=== PATIENT | female | born 1960 | race Caucasian/White ===

== ENCOUNTER 2017-04-03 13:07 | Emergency (ER) | payer OTHER ==
[2017-04-03] MEDS ORDERED: Ketorolac 30 MG/ML SDV IVPUSH ONE (13:35)
[2017-04-03] MEDS ORDERED: Morphine 4 MG/ML Syringe IVPUSH ONE (15:49)
--- NOTE | 2017-04-03 15:51 | EDM.PDOC ---
[id number]: KIDNEY STENT, PAIN Time Seen by Provider: 04/03/17 13:30 Source of Information: Reports: Patient, Family History Limitations: Reports: No Limitations - History of Present Illness INITIAL COMMENTS - FREE TEXT/NARRATIVE: 56-year-old female who had a left ureteral stent placed 2 weeks ago because of ureteral stones which were bacterial in origin. She has multiple sclerosis, significant chronic pain but over the last several days the pain has been much worse and she feels it is related to the stent. No fevers or chills, she does have some dysuria. She was on an antibiotic up until 5 days ago, and has one more dose to take the day prior to stent removal which is in 1 week. She is very uncomfortable. Severity: Moderate Associated Symptoms: Reports: Loss of Appetite, Malaise, Other (Patient is very anxious, mildly hyperventilating). Denies: Headaches, Nausea/Vomiting, Shortness of Breath Left Lower Back Pain Score (Numeric/FACES): 10 - Related Data Allergies Allergy/AdvReac Type Severity Reaction Status Date / Time amoxicillin [From Augmentin] Allergy Hives Verified 04/03/17 13:36 aspirin Allergy Abdominal Verified 04/03/14 15:22 Pain Cephalosporins Allergy Hives Verified 04/03/17 13:36 clavulanic acid Allergy Hives Verified 04/03/17 13:36 [From Augmentin] diclofenac Allergy Pain Verified 04/03/17 13:36 erythromycin base Allergy Hives Verified 04/03/14 15:22 [Erythromycin Base] lisinopril Allergy Hives Verified 04/03/14 15:22 phenytoin Allergy Tremors Verified 04/03/17 13:36 Sulfa (Sulfonamide Allergy Hives Verified 04/03/14 15:22 Antibiotics) tizanidine Allergy Other Verified 04/03/17 13:34 TIZANIDINE Allergy Pain Uncoded 04/03/17 13:36 Past Medical History Other Cardiovascular History: MITRALVE VALVE PROLAPSE Respiratory History: Reports: Asthma Genitourinary History: Reports: Renal Calculus 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 Denies: Fever, Chills HEENT: Reports: No Symptoms Respiratory: Denies: Shortness of Breath Cardiovascular: Denies: Chest Pain, Palpitations Endocrine: Denies: Fatigue GI/Abdominal: Reports: Abdominal Pain : Reports: Dysuria Skin: Reports: Pallor Neurological: Reports: Other (Chronic diffuse weakness and chronic pain due to multiple sclerosis) Psychiatric: Reports: Anxiety ED EXAM, RENAL/ - Physical Exam Exam: See Below Exam Limited By: No Limitations General Appearance: Alert, Moderate Distress (Tearful, very uncomfortable) Respiratory/Chest: No Respiratory Distress, Lungs Clear Cardiovascular: Regular Rate, Rhythm GI/Abdominal: Tender (She does react with some tenderness to palpation along the left anterior abdomen) Neurological: Alert, Oriented Psychiatric: Anxious Skin Exam: Warm, Dry Course - Vital Signs Last Recorded V/S: Last Vital Signs Temp 99.3 F 04/03/17 16:38 Pulse 92 04/03/17 16:38 Resp 18 04/03/17 16:38 BP 136/49 L 04/03/17 16:38 Pulse Ox 98 04/03/17 16:38 - Orders/Labs/Meds Orders: Active Orders 24 hr Category Date Time Status CULTURE URINE [RM] Stat Lab 04/03/17 14:48 Received Labs: Laboratory Tests 04/03/17 04/03/17 04/03/17 Range/Units 13:38 13:38 14:13 WBC 10.1 (4.5-11.0) K/uL RBC 4.63 (3.30-5.50) M/uL Hgb 11.6 L (12.0-15.0) g/dL Hct 36.7 (36.0-48.0) % MCV 79 L (80-98) fL MCH 25 L (27-31) pg MCHC 32 (32-36) % Plt Count 263 (150-400) K/uL Neut % (Auto) 76 H (36-66) % Lymph % (Auto) 13 L (24-44) % Mcdonald % (Auto) 8 H (2-6) % Eos % (Auto) 2 (2-4) % Baso % (Auto) 1 (0-1) % Sodium 141 (140-148) mmol/L Potassium 4.1 (3.6-5.2) mmol/L Chloride 106 (100-108) mmol/L Carbon Dioxide 26 (21-32) mmol/L Anion Gap 9.2 (5.0-14.0) mmol/L BUN 11 (7-18) mg/dL Creatinine 0.9 (0.6-1.0) mg/dL Est Cr Clr Drug Dosing 59.55 mL/min Estimated GFR (MDRD) > 60 (>60) Glucose 154 H (74-106) mg/dL Calcium 8.5 (8.5-10.1) mg/dL Urine Color Yellow Urine Appearance Cloudy Urine pH 5.0 (4.5-8.0) Ur Specific [place] 1.020 (1.008-1.030) Urine Protein Trace (NEGATIVE) mg/dL Urine Glucose (UA) Normal (NEGATIVE) mg/dL Urine Ketones Negative (NEGATIVE) mg/dL Urine Occult Blood Large (NEGATIVE) Urine Nitrite Negative (NEGATIVE) Urine Bilirubin Negative (NEGATIVE) Urine Urobilinogen Normal (NORMAL) mg/dL Ur Leukocyte Esterase Large (NEGATIVE) Urine RBC 20-30 H (0-5) Urine WBC Semi-packed H (0-5) Ur Epithelial Cells Moderate Amorphous Sediment Few Urine Bacteria Few Urine Mucus Few Urine Other See note Meds: Medications Discontinued Medications Generic Name Dose Route Start Last Admin Trade Name Naty PRN Reason Stop Dose Admin Ketorolac Tromethamine 30 mg 04/03/17 13:35 04/03/17 14:00 Toradol IVPUSH 04/03/17 13:36 30 mg ONETIME ONE Administration Morphine Sulfate 4 mg 04/03/17 15:49 04/03/17 16:18 Morphine IVPUSH 04/03/17 15:50 4 mg ONETIME ONE Administration - Re-Assessments/Exams Free Text/Narrative Re-Assessment/Exam: 04/04/17 09:24 UA was obtained which did have RBCs, WBCs and some bacteria. A culture was initiated. CBC and BMP were reassuring, white count was normal and kidney function was normal. I discussed her case with nephrology in [place], it wasn' t her regular urologist but the urologist on-call and I was told they do not remove stents on an emergency basis. Patient was given 30 mg of Toradol IV which helped her pain a small amount. She was given 10 additional doses to take up to 3 times daily, and her is planning on taking her down to [place] tomorrow to go to the emergency room if she doesn't have significant improvement. Departure - Departure Time of Disposition: 16:39 Disposition: Home, Self-Care 01 Condition: Fair Clinical Impression: UTI, Urinary tract infectious disease, Renal colic on left side - Discharge Information Instructions: Urinary Tract Infection, Adult, [id number] Referrals: PCP,None [Primary Care Provider] - Forms: ED Department Discharge Care Plan Goals: Take antibiotic twice daily for at least 5 days, use pain medication twice a day and no other medication changes. Go to [place] if possible for stent removal if pain is uncontrolled. - My Orders Last 24 Hours: My Active Orders 04/03/17 14:48 CULTURE URINE [RM] Stat - Assessment/Plan Last 24 Hours: My Active Orders 04/03/17 14:48 CULTURE URINE [RM] Stat
[2017-04-03 16:39] VITALS: BP 136/49
== END 2017-04-03 16:44 | disposition home or self-care (01) ==
LOC: JP.ED 13:07
DX: N39.0 Urinary tract infection, site not specified (principal); N23 Unspecified renal colic; J45.909 Unspecified asthma, uncomplicated; I34.1 Nonrheumatic mitral (valve) prolapse; Z96.0 Presence of urogenital implants; Z88.0 Allergy status to penicillin; Z88.1 Allergy status to other antibiotic agents; Z88.2 Allergy status to sulfonamides; Z88.8 Allergy status to other drugs, medicaments and biological substances
CPT/HCPCS: 36415; 80048; 81001; 85025; 87086; 96374; 96375; 99284; J1885; J2270

== ENCOUNTER 2023-03-29 06:13 | Inpatient (IN) | payer MEDICARE, BC ==
[2023-03-29] MEDS ORDERED: Sodium Chloride 0.9% 1,000 ML IV ONE (07:29)
[2023-03-29] MEDS ORDERED: Acetaminophen 325 MG Tab PO PRN (07:29)
[2023-03-29] MEDS ORDERED: fentaNYL 50 MCG/ML SDV IVPUSH PRN (07:35)
[2023-03-29 07:36] LABS: HEMATOCRIT 36.3 % (34.3-46.0); HEMOGLOBIN 11.3 g/dL (11.2-15.5); MEAN CORPUSCULAR HEMOGLOBIN 27.5 pg (31.6-35.5); MEAN CORPUSCULAR HGB CONC 31.1 g/dL (31.6-35.5); MEAN CORPUSCULAR VOLUME 88.3 fL (81.4-99.0); RED BLOOD CELL COUNT 4.11 M/uL (3.77-5.24); WHITE BLOOD CELL COUNT,WBC 10.2 K/uL (3.2-11.0)
[2023-03-29 07:45] LABS: A/G RATIO 0.6 (1.2-2.2); ALANINE AMINOTRANSFERASE,ALT 29 U/L (12-78); ALKALINE PHOSPHATASE 143 U/L (46-116); ANION GAP 4.3 mmol/L (5.0-14.0); ASPARTATE AMNIOTRANSFERASE,AST 31 U/L (15-37); BILIRUBIN TOTAL 0.4 mg/dL (0.2-1.0); BLOOD UREA NITROGEN,BUN 13 mg/dL (7-18); CALCIUM 8.8 mg/dL (8.5-10.1); CARBON DIOXIDE,CO2 32 mmol/L (21-32); CHLORIDE,CL 105 mmol/L (100-108); CREATININE 0.8 mg/dL (0.6-1.0); EST CRCL DRUG DOSING (CG) 59.54 mL/min; ESTIMATED GFR 83 mL/min (>60); GLUCOSE RANDOM 112 mg/dL (74-106); PROTEIN TOTAL,TP 7.8 g/dL (6.4-8.2); SODIUM,NA 141 mmol/L (140-148)
[2023-03-29 07:47] LABS: APPEARANCE,URINE CLEAR (CLEAR); BILIRUBIN,URINE NEGATIVE (NEGATIVE); COLOR,URINE YELLOW (YELLOW); GLUCOSE,URINE NEGATIVE (NEGATIVE); KETONES,URINE NEGATIVE (NEGATIVE); LEUKOCYTE ESTERASE,URINE NEGATIVE (NEGATIVE); NITRITE,URINE NEGATIVE (NEGATIVE); OCCULT BLOOD,URINE NEGATIVE (NEGATIVE); PH,URINE 6.5 (5.0-8.0); PROTEIN,URINE NEGATIVE (NEGATIVE); UROBILINOGEN,URINE 0.2 EU/dL (0.2-1.0)
[2023-03-29 07:50] LABS: PROTHROMBIN TIME 10.4 sec (9.2-10.6)
[2023-03-29 07:55] LABS: BACTERIA,URINE NOT SEEN; EPITHELIAL CELLS,URINE NOT SEEN; MUCUS,URINE NOT SEEN; RBC,URINE NOT SEEN (0-5); WBC,URINE NOT SEEN (0-5)
[2023-03-29 07:56] LABS: AMORPHOUS SEDIMENT,URINE RARE
[2023-03-29] MEDS ORDERED: Sodium Chloride 0.9% 10 ML Syringe FLUSH PRN (11:48)
[2023-03-29] MEDS ORDERED: [UNRECOGNIZED DRUG - OTHER] PO PRN (11:48)
[2023-03-29] MEDS ORDERED: ATOGEPANT 60 MG PO SCH (11:48)
[2023-03-29] MEDS ORDERED: Psyllium Seed (With Sugar) Wafer PO SCH (11:48)
[2023-03-29] MEDS ORDERED: Albuterol 0.083% 2.5 MG/3 ML Neb Soln NEB PRN (11:48)
[2023-03-29] MEDS ORDERED: Montelukast 10 MG Tab PO SCH (11:48)
[2023-03-29] MEDS ORDERED: NERVIVE PO SCH (11:48)
[2023-03-29] MEDS ORDERED: Ondansetron 4 MG/2 ML SDV IV PRN (11:48)
[2023-03-29] MEDS ORDERED: Ketotifen 0.025% Ophth Soln 5 ML Bottle EYEBOTH SCH (12:00)
[2023-03-29] MEDS ORDERED: Mometasone Furoate HFA 200 mcg/Puff 13 GM Inhaler INH SCH (12:00)
[2023-03-29] MEDS ORDERED: Hydrocortisone Sodium Succinate 100 MG/2 ML SDV IVPUSH ONE ×2 (13:00→15:30)
[2023-03-29] MEDS: Verapamil 120 MG Tab.ER PO SCH ×2 (13:01→21:42)
[2023-03-29] MEDS: Potassium Chloride 20 MEQ Tab.ER PO SCH ×2 (13:02→21:39)
[2023-03-29] MEDS: fentaNYL 50 MCG/ML SDV IVPUSH PRN (14:19)
[2023-03-29] MEDS: Sodium Chloride 0.9% 1,000 ML IV SCH ×2 (14:39→20:58)
[2023-03-29] MEDS: Baclofen 10 MG Tab PO SCH ×2 (14:44→21:39)
[2023-03-29] MEDS: Gabapentin 100 MG Cap PO SCH ×2 (14:44→21:38)
[2023-03-29] MEDS ORDERED: Bupivacaine 0.5%/EPINEPHrine 1:200,000 50 ML MDV ONE (15:07)
[2023-03-29] MEDS: Docusate Sodium 100 MG Cap PO SCH (15:11)
[2023-03-29] MEDS: Fluticasone NASAL Spray 16 GM Bottle NASBOTH SCH (15:21)
[2023-03-29] MEDS: FLUTICASONE PROPIONATE INH SCH ×2 (15:22→22:00)
[2023-03-29] MEDS ORDERED: fentaNYL 250 MCG/5 ML SDV ONE (15:25)
[2023-03-29] MEDS ORDERED: Propofol 200 MG/20 ML SDV ONE (15:25)
[2023-03-29] MEDS: DULoxetine 30 MG Cap PO SCH ×2 (15:29→21:39)
[2023-03-29] MEDS: DALFAMPRIDINE 10 MG PO SCH ×2 (15:30→21:39)
[2023-03-29] MEDS: lamoTRIgine 25 MG Tab PO SCH (15:32)
[2023-03-29] MEDS: Pregabalin 75 MG Cap PO SCH ×2 (15:32→21:40)
[2023-03-29] MEDS: AZELASTINE 0.05% EYEBOTH SCH ×2 (15:33→21:40)
[2023-03-29] MEDS ORDERED: ceFAZolin 1 GM in Premix Bag 1 BAG IV ONE (16:00)
[2023-03-29] MEDS ORDERED: Ondansetron 4 MG/2 ML SDV ONE (16:11)
[2023-03-29] MEDS ORDERED: Sugammadex Sodium 200 MG/2 ML VIAL ONE (16:11)
[2023-03-29] MEDS: Psyllium Seed (With Sugar) Wafer PO SCH (18:24)
[2023-03-29] MEDS: Amitriptyline 25 MG Tab PO SCH ×2 (18:29→22:03)
[2023-03-29] MEDS: oxyCODONE 5 MG Tab PO PRN (19:06)
[2023-03-29] MEDS: Montelukast 10 MG Tab PO SCH (21:38)
[2023-03-29] MEDS: Zolpidem 5 MG Tab PO SCH (21:45)
[2023-03-30] MEDS: oxyCODONE 5 MG Tab PO PRN ×5 (00:04→21:55)
[2023-03-30] MEDS: fentaNYL 50 MCG/ML SDV IVPUSH PRN (05:01)
[2023-03-30 05:05] LABS: HEMATOCRIT 30.1 % (34.3-46.0); HEMOGLOBIN 9.4 g/dL (11.2-15.5); MEAN CORPUSCULAR HEMOGLOBIN 27.6 pg (31.6-35.5); MEAN CORPUSCULAR HGB CONC 31.2 g/dL (31.6-35.5); MEAN CORPUSCULAR VOLUME 88.3 fL (81.4-99.0); RED BLOOD CELL COUNT 3.41 M/uL (3.77-5.24); WHITE BLOOD CELL COUNT,WBC 6.2 K/uL (3.2-11.0)
[2023-03-30 05:25] LABS: ANION GAP 4.6 mmol/L (5.0-14.0); CALCIUM 7.9 mg/dL (8.5-10.1); CREATININE 0.7 mg/dL (0.6-1.0); EST CRCL DRUG DOSING (CG) 69.54 mL/min; POTASSIUM,K 3.9 mmol/L (3.6-5.2)
[2023-03-30] MEDS: FLUTICASONE PROPIONATE INH SCH ×2 (07:10→21:56)
[2023-03-30] MEDS: Acetaminophen 325 MG Tab PO PRN ×2 (08:01→17:43)
[2023-03-30] MEDS: Levothyroxine 88 MCG Tab PO SCH ×2 (08:02→08:16)
[2023-03-30] MEDS: Docusate Sodium 100 MG Cap PO SCH (08:04)
[2023-03-30] MEDS: Potassium Chloride 20 MEQ Tab.ER PO SCH ×2 (08:04→21:58)
[2023-03-30] MEDS: DULoxetine 30 MG Cap PO SCH ×3 (08:11→21:58)
[2023-03-30] MEDS: Fluticasone NASAL Spray 16 GM Bottle NASBOTH SCH (08:12)
[2023-03-30] MEDS: Verapamil 120 MG Tab.ER PO SCH ×2 (08:12→22:10)
[2023-03-30] MEDS: DALFAMPRIDINE 10 MG PO SCH ×2 (08:12→21:56)
[2023-03-30] MEDS: Baclofen 10 MG Tab PO SCH ×3 (08:12→22:10)
[2023-03-30] MEDS: lamoTRIgine 25 MG Tab PO SCH (08:15)
[2023-03-30] MEDS: Gabapentin 100 MG Cap PO SCH ×3 (08:18→22:10)
[2023-03-30] MEDS ORDERED: Sodium Chloride 0.9% 1,000 ML IV SCH (09:30)
[2023-03-30] MEDS: AZELASTINE 0.05% EYEBOTH SCH ×2 (11:06→22:14)
[2023-03-30] MEDS ORDERED: hydrOXYzine HCl 25 MG Tab PO SCH (12:00)
[2023-03-30] MEDS: Pregabalin 75 MG Cap PO SCH ×2 (12:01→17:37)
[2023-03-30] MEDS: predniSONE 5 MG Tab PO SCH (12:02)
[2023-03-30] MEDS: ATOGEPANT 60 MG PO SCH (17:33)
[2023-03-30] MEDS: Amitriptyline 25 MG Tab PO SCH ×2 (17:34→22:14)
[2023-03-30] MEDS: Psyllium Seed (With Sugar) Wafer PO SCH (17:35)
[2023-03-30] MEDS: hydrOXYzine HCl 25 MG Tab PO SCH (21:59)
[2023-03-30] MEDS: Cetirizine 10 MG Tab PO SCH (22:10)
[2023-03-30] MEDS: Montelukast 10 MG Tab PO SCH (22:14)
[2023-03-30] MEDS: Zolpidem 5 MG Tab PO SCH (22:21)
[2023-03-31] MEDS: oxyCODONE 5 MG Tab PO PRN ×4 (06:03→22:10)
[2023-03-31] MEDS: FLUTICASONE PROPIONATE INH SCH ×2 (07:00→22:12)
[2023-03-31] MEDS: Verapamil 120 MG Tab.ER PO SCH ×2 (08:23→21:53)
[2023-03-31] MEDS: Levothyroxine 88 MCG Tab PO SCH (08:23)
[2023-03-31] MEDS: Fluticasone NASAL Spray 16 GM Bottle NASBOTH SCH (08:25)
[2023-03-31] MEDS: Docusate Sodium 100 MG Cap PO SCH (08:25)
[2023-03-31] MEDS: DALFAMPRIDINE 10 MG PO SCH ×2 (08:25→21:57)
[2023-03-31] MEDS: Potassium Chloride 20 MEQ Tab.ER PO SCH ×2 (08:26→21:51)
[2023-03-31] MEDS: Baclofen 10 MG Tab PO SCH ×3 (08:26→21:56)
[2023-03-31] MEDS: lamoTRIgine 25 MG Tab PO SCH (08:26)
[2023-03-31] MEDS: Gabapentin 100 MG Cap PO SCH ×3 (08:26→21:57)
[2023-03-31] MEDS: AZELASTINE 0.05% EYEBOTH SCH ×2 (08:26→22:12)
[2023-03-31] MEDS: Acetaminophen 325 MG Tab PO PRN (11:57)
[2023-03-31] MEDS: DULoxetine 30 MG Cap PO SCH ×2 (11:58→21:51)
[2023-03-31] MEDS: Pregabalin 75 MG Cap PO SCH ×2 (14:32→17:20)
[2023-03-31] MEDS: Polyethylene Glycol 3350 Powder 17 GM Packet PO PRN (14:33)
[2023-03-31] MEDS: fentaNYL 50 MCG/ML SDV IVPUSH PRN (17:18)
[2023-03-31] MEDS: Psyllium Seed (With Sugar) Wafer PO SCH (17:23)
[2023-03-31] MEDS: Amitriptyline 25 MG Tab PO SCH ×2 (17:23→22:15)
[2023-03-31] MEDS: ATOGEPANT 60 MG PO SCH (17:23)
[2023-03-31] MEDS: Montelukast 10 MG Tab PO SCH (21:56)
[2023-03-31] MEDS: hydrOXYzine HCl 25 MG Tab PO SCH (21:56)
[2023-03-31] MEDS: Cetirizine 10 MG Tab PO SCH (21:57)
[2023-03-31] MEDS: Zolpidem 5 MG Tab PO SCH (22:11)
[2023-04-01] MEDS: FLUTICASONE PROPIONATE INH SCH ×2 (07:26→20:47)
[2023-04-01] MEDS: oxyCODONE 5 MG Tab PO PRN ×4 (07:34→22:25)
[2023-04-01] MEDS: Levothyroxine 88 MCG Tab PO SCH (07:35)
[2023-04-01] MEDS: DALFAMPRIDINE 10 MG PO SCH ×2 (08:16→20:43)
[2023-04-01] MEDS: Docusate Sodium 100 MG Cap PO SCH (08:16)
[2023-04-01] MEDS: Fluticasone NASAL Spray 16 GM Bottle NASBOTH SCH (08:17)
[2023-04-01] MEDS: Potassium Chloride 20 MEQ Tab.ER PO SCH ×2 (08:18→20:44)
[2023-04-01] MEDS: AZELASTINE 0.05% EYEBOTH SCH ×2 (08:18→20:47)
[2023-04-01] MEDS: Gabapentin 100 MG Cap PO SCH ×3 (08:18→20:45)
[2023-04-01] MEDS: Baclofen 10 MG Tab PO SCH ×3 (08:18→20:45)
[2023-04-01] MEDS: lamoTRIgine 25 MG Tab PO SCH (08:18)
[2023-04-01] MEDS: Verapamil 120 MG Tab.ER PO SCH ×2 (08:19→20:44)
[2023-04-01] MEDS: DULoxetine 30 MG Cap PO SCH ×2 (12:28→20:42)
[2023-04-01] MEDS: predniSONE 5 MG Tab PO SCH (12:28)
[2023-04-01] MEDS: Pregabalin 75 MG Cap PO SCH ×2 (12:31→17:15)
[2023-04-01] MEDS: Polyethylene Glycol 3350 Powder 17 GM Packet PO PRN (17:12)
[2023-04-01] MEDS: ATOGEPANT 60 MG PO SCH (17:13)
[2023-04-01] MEDS: Amitriptyline 25 MG Tab PO SCH ×2 (17:14→22:26)
[2023-04-01] MEDS: Psyllium Seed (With Sugar) Wafer PO SCH (17:16)
[2023-04-01] MEDS: Zolpidem 5 MG Tab PO SCH (20:41)
[2023-04-01] MEDS: hydrOXYzine HCl 25 MG Tab PO SCH (20:42)
[2023-04-01] MEDS: Montelukast 10 MG Tab PO SCH (20:46)
[2023-04-01] MEDS: Cetirizine 10 MG Tab PO SCH (20:46)
[2023-04-01] MEDS ORDERED: Bisacodyl 10 MG Supp RECTAL PRN (21:52)
[2023-04-02] MEDS: FLUTICASONE PROPIONATE INH SCH ×2 (07:39→21:04)
[2023-04-02] MEDS: oxyCODONE 5 MG Tab PO PRN ×4 (08:07→23:30)
[2023-04-02] MEDS: Fluticasone NASAL Spray 16 GM Bottle NASBOTH SCH (08:10)
[2023-04-02] MEDS: Potassium Chloride 20 MEQ Tab.ER PO SCH ×2 (08:11→21:01)
[2023-04-02] MEDS: lamoTRIgine 25 MG Tab PO SCH (08:11)
[2023-04-02] MEDS: DALFAMPRIDINE 10 MG PO SCH ×2 (08:11→21:01)
[2023-04-02] MEDS: Verapamil 120 MG Tab.ER PO SCH ×2 (08:12→21:59)
[2023-04-02] MEDS: Baclofen 10 MG Tab PO SCH ×3 (08:15→21:02)
[2023-04-02] MEDS: Gabapentin 100 MG Cap PO SCH ×3 (08:15→21:02)
[2023-04-02] MEDS: Docusate Sodium 100 MG Cap PO SCH (08:15)
[2023-04-02] MEDS: AZELASTINE 0.05% EYEBOTH SCH ×2 (08:15→21:04)
[2023-04-02] MEDS: Levothyroxine 88 MCG Tab PO SCH (08:16)
[2023-04-02] MEDS ORDERED: Furosemide 40 MG/4 ML VIAL IVPUSH ONE (11:15)
[2023-04-02] MEDS ORDERED: Furosemide 20 MG/2 ML VIAL IVPUSH ONE (11:15)
[2023-04-02] MEDS: DULoxetine 30 MG Cap PO SCH ×2 (11:22→20:59)
[2023-04-02] MEDS: Pregabalin 75 MG Cap PO SCH ×2 (11:22→18:25)
[2023-04-02] MEDS: ATOGEPANT 60 MG PO SCH (18:20)
[2023-04-02] MEDS: Amitriptyline 25 MG Tab PO SCH ×2 (18:22→23:30)
[2023-04-02] MEDS: Psyllium Seed (With Sugar) Wafer PO SCH (18:22)
[2023-04-02] MEDS: Zolpidem 5 MG Tab PO SCH (20:57)
[2023-04-02] MEDS: hydrOXYzine HCl 25 MG Tab PO SCH (20:58)
[2023-04-02] MEDS: Montelukast 10 MG Tab PO SCH (21:02)
[2023-04-02] MEDS: Cetirizine 10 MG Tab PO SCH (21:03)
[2023-04-03] MEDS: Levothyroxine 88 MCG Tab PO SCH (07:18)
[2023-04-03] MEDS: oxyCODONE 5 MG Tab PO PRN ×4 (07:21→23:38)
[2023-04-03] MEDS: FLUTICASONE PROPIONATE INH SCH ×2 (07:25→21:32)
[2023-04-03] MEDS: Docusate Sodium 100 MG Cap PO SCH (08:35)
[2023-04-03] MEDS: Gabapentin 100 MG Cap PO SCH ×3 (08:36→21:30)
[2023-04-03] MEDS: lamoTRIgine 25 MG Tab PO SCH (08:37)
[2023-04-03] MEDS: Potassium Chloride 20 MEQ Tab.ER PO SCH ×2 (08:37→21:31)
[2023-04-03] MEDS: Baclofen 10 MG Tab PO SCH ×3 (08:38→21:31)
[2023-04-03] MEDS: Verapamil 120 MG Tab.ER PO SCH ×2 (08:38→21:32)
[2023-04-03] MEDS: DALFAMPRIDINE 10 MG PO SCH ×2 (08:38→21:32)
[2023-04-03] MEDS: AZELASTINE 0.05% EYEBOTH SCH ×2 (08:39→21:32)
[2023-04-03] MEDS: Fluticasone NASAL Spray 16 GM Bottle NASBOTH SCH (08:39)
[2023-04-03] MEDS: Pregabalin 75 MG Cap PO SCH ×2 (12:03→17:23)
[2023-04-03] MEDS: DULoxetine 30 MG Cap PO SCH ×2 (12:04→21:32)
[2023-04-03] MEDS: predniSONE 5 MG Tab PO SCH (12:04)
[2023-04-03] MEDS: ATOGEPANT 60 MG PO SCH (17:24)
[2023-04-03] MEDS: Psyllium Seed (With Sugar) Wafer PO SCH (17:25)
[2023-04-03] MEDS: Amitriptyline 25 MG Tab PO SCH ×2 (17:25→23:39)
[2023-04-03] MEDS: Acetaminophen 325 MG Tab PO PRN (21:31)
[2023-04-03] MEDS: Cetirizine 10 MG Tab PO SCH (21:31)
[2023-04-03] MEDS: hydrOXYzine HCl 25 MG Tab PO SCH (21:31)
[2023-04-03] MEDS: Montelukast 10 MG Tab PO SCH (21:32)
[2023-04-03] MEDS: Zolpidem 5 MG Tab PO SCH (21:32)
[2023-04-04] MEDS: oxyCODONE 5 MG Tab PO PRN ×2 (05:40→10:22)
[2023-04-04 06:21] LABS: HEMATOCRIT 28.5 % (34.3-46.0); HEMOGLOBIN 8.9 g/dL (11.2-15.5); MEAN CORPUSCULAR HEMOGLOBIN 27.6 pg (31.6-35.5); MEAN CORPUSCULAR HGB CONC 31.2 g/dL (31.6-35.5); MEAN CORPUSCULAR VOLUME 88.2 fL (81.4-99.0); RED BLOOD CELL COUNT 3.23 M/uL (3.77-5.24); WHITE BLOOD CELL COUNT,WBC 6.1 K/uL (3.2-11.0)
[2023-04-04 06:37] LABS: ANION GAP 7.3 mmol/L (5.0-14.0); CALCIUM 8.9 mg/dL (8.5-10.1); CREATININE 0.6 mg/dL (0.6-1.0); EST CRCL DRUG DOSING (CG) 81.13 mL/min; POTASSIUM,K 4.3 mmol/L (3.6-5.2)
[2023-04-04] MEDS: FLUTICASONE PROPIONATE INH SCH (07:06)
[2023-04-04] MEDS: Levothyroxine 88 MCG Tab PO SCH (08:55)
[2023-04-04] MEDS: Docusate Sodium 100 MG Cap PO SCH (08:55)
[2023-04-04] MEDS: Gabapentin 100 MG Cap PO SCH ×2 (08:55→13:00)
[2023-04-04] MEDS: Baclofen 10 MG Tab PO SCH ×2 (08:56→13:00)
[2023-04-04] MEDS: Potassium Chloride 20 MEQ Tab.ER PO SCH (08:56)
[2023-04-04] MEDS: Fluticasone NASAL Spray 16 GM Bottle NASBOTH SCH (08:57)
[2023-04-04] MEDS: lamoTRIgine 25 MG Tab PO SCH (08:57)
[2023-04-04] MEDS: DALFAMPRIDINE 10 MG PO SCH (08:58)
[2023-04-04] MEDS ORDERED: Acetaminophen 500 MG Tab PO SCH (09:00)
[2023-04-04] MEDS: Polyethylene Glycol 3350 Powder 17 GM Packet PO PRN (09:01)
[2023-04-04] MEDS: AZELASTINE 0.05% EYEBOTH SCH (10:23)
[2023-04-04 11:47] VITALS: BP 102/53; PULSE 79
[2023-04-04] MEDS: Verapamil 120 MG Tab.ER PO SCH (12:38)
[2023-04-04] MEDS: Pregabalin 75 MG Cap PO SCH (13:00)
[2023-04-04] MEDS: DULoxetine 30 MG Cap PO SCH (13:01)
== END 2023-04-04 15:09 | DRG 536 ==
LOC: JP.ED 06:13 → JP.MS 09:02
PROVIDERS: ADMIT Hospitalist; ATTEND Internal Medicine
DX: S72.143A Displaced intertrochanteric fracture of unspecified femur, initial encounter for closed fracture (principal); D62 Acute posthemorrhagic anemia; E27.40 Unspecified adrenocortical insufficiency; Z20.822 Contact with and (suspected) exposure to COVID-19; G35 Multiple sclerosis; I10 Essential (primary) hypertension; G89.4 Chronic pain syndrome; Z98.890 Other specified postprocedural states; Z88.0 Allergy status to penicillin; Z88.6 Allergy status to analgesic agent; Z88.2 Allergy status to sulfonamides; Z88.8 Allergy status to other drugs, medicaments and biological substances; J45.909 Unspecified asthma, uncomplicated; Z79.899 Other long term (current) drug therapy; W19.XXXA Unspecified fall, initial encounter; W18.30XA Fall on same level, unspecified, initial encounter
CPT/HCPCS: 36415; 71045 ×2; 72192; 80053; 81001; 85027; 85610; 93005; 93010; 96361; 96374; 99285 ×2; J3010; J7030; U0002; 73502-26-RT; 73502-RT; 76000; 80048; 94640; 97110-GP; 97161-GP; 97165-GO; 97530-GP; 97535-GO; 99222; 99232; 99239; A9270-GY; C1713; J0131; J0690; J1720; J1940; J2405; J2704; J3490; J7512

== ENCOUNTER 2025-03-25 22:35 | Emergency (ER) | payer MEDICARE, BC ==
[2025-03-25 23:03] VITALS: BP 121/83; PULSE 106
== END 2025-03-25 23:16 | disposition home or self-care (01) ==
LOC: JP.ED 22:35
DX: I47.10 Supraventricular tachycardia, unspecified (principal); I10 Essential (primary) hypertension; J45.909 Unspecified asthma, uncomplicated; Z88.6 Allergy status to analgesic agent; Z88.8 Allergy status to other drugs, medicaments and biological substances; Z88.1 Allergy status to other antibiotic agents; Z88.2 Allergy status to sulfonamides; Z79.899 Other long term (current) drug therapy; Z79.890 Hormone replacement therapy; Z79.51 Long term (current) use of inhaled steroids
CPT/HCPCS: 93005; 99284